=== PATIENT | female | born 1960 | race Caucasian/White ===

== ENCOUNTER 2018-06-01 10:00 | Emergency (ER) | payer OTHER ==
[2018-06-01] MEDS ORDERED: NS 0.9% 1000 ML* 1,000 ML IV ONE (10:41)
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
[2018-06-01 11:57] LABS: ABS Basophils 0 10^3/ul (0-0.2); ABS Eosinophils 0.1 10^3/ul (0-0.6); ABS Lymphocytes 1.7 10^3/ul (1.0-4.8); ABS Monocytes 0.6 10^3/ul (0-0.8); ABS Neutrophils 8.8 10^3/ul (1.5-7.7); ABS Nucleated RBC 0 10^3/ul; Eosinophil % 1.1 % (0-6); Hematocrit 38 % (35-47); Hemoglobin 12.9 g/dl (12.0-16.0); Mean Corpuscular HGB Conc 34 g/dl (31-36); Mean Corpuscular Hemoglobin 30 pg (27-31); Mean Corpuscular Volume 89 fL (80-97); Mean Platelet Volume 9.4 um3 (7.4-10.4); Nucleated Red Blood Cells % 0.1; Platelet Count 229 10^3/ul (150-450); Red Blood Count 4.24 10^6/ul (4.00-5.40); Red Cell Distribution Width 13 % (10.5-15); White Blood Count 11.3 10^3/ul (3.5-10.8)
[2018-06-01 12:13] LABS: EGFR Non-African American 90.4 (>60)
[2018-06-01] MEDS ORDERED: Iohexol 300* (CONTRAST) 10 ML SDV IV ONE (12:20)
[2018-06-01] MEDS ORDERED: Potassium Chlor TAB* 20 MEQ TAB.ER PO ONE (12:31)
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
[2018-06-01] MEDS ORDERED: ceFAZolin 1 GM VIAL(*) 2 GM in NS 0.9% 100 ML* 100 ML IVPB ONE (14:54)
[2018-06-01] MEDS ORDERED: Ketorolac INJ* 30 MG/ML 1 ML VIAL IV PUSH ONE (15:34)
[2018-06-01] MEDS ORDERED: ceFAZolin 2 GM PREMIX (*) 2 GM/50 ML BAG IVPB ONE (16:00)
[2018-06-01] MEDS ORDERED: Tetan/Diph/Pertus SYR(Tdap)* 0.5 ML SYR(BOOSTRIX) use SYR IM ONE (17:28)
[2018-06-01 17:44] VITALS: BP 158/88
== END 2018-06-01 17:45 | disposition home or self-care (01) ==
LOC: ED 10:00
DX: S82.832B Other fracture of upper and lower end of left fibula, initial encounter for open fracture type I or II (principal); V47.5XXA Car driver injured in collision with fixed or stationary object in traffic accident, initial encounter; Y92.410 Unspecified street and highway as the place of occurrence of the external cause; I10 Essential (primary) hypertension; R91.8 Other nonspecific abnormal finding of lung field; Z23 Encounter for immunization; Z79.899 Other long term (current) drug therapy
CPT/HCPCS: 36415; 70450; 71260; 72125; 74177; 80053; 83605; 83690; 85025; 90471; 90715; 96374; 96375; 99284; A9270-GY; J0690; J1885; Q9967

== ENCOUNTER 2018-06-12 07:50 | Day surgery (SDC) | payer OTHER ==
[~2018-06-12 07:50] MED LIST: Buffered Lidocaine 0.9% SYRIN* 5 ML/SYR SYRINGE INTRADERM ONE
[2018-06-12] MEDS ORDERED: ceFAZolin 2 GM PREMIX in ORs 2 GM/50 ML BAG IVPB ONE (08:12)
[2018-06-12] MEDS ORDERED: Lidocaine 2% PF * 5 ML VIAL ONE (09:16)
[2018-06-12] MEDS ORDERED: Propofol* 10 MG/ML 20 ML BTL IV PUSH ONE (09:16)
[2018-06-12] MEDS ORDERED: Ropivacaine* 2 MG/ML 20 ML VIAL (0.2%) ONE (10:00)
[2018-06-12] MEDS ORDERED: fentaNYL* 50 MCG/ML 2 ML VIAL (100 MCG VIAL) ONE ×2 (10:07→11:52)
[2018-06-12] MEDS ORDERED: Midazolam* 1 MG/ML 2 ML VIAL (2 MG) ONE (10:07)
[2018-06-12] MEDS ORDERED: HYDROmorphone INJ1* 1 MG/ML SYRINGE IV PRN (10:45)
[2018-06-12] MEDS ORDERED: Metoclopramide IV* 5 MG/ML 2 ML VIAL IV PRN (10:45)
[2018-06-12] MEDS ORDERED: Naloxone* 0.4 MG/ML 1 ML VIAL IV PRN (10:45)
[2018-06-12] MEDS ORDERED: Ketorolac INJ* 30 MG/ML 1 ML VIAL ONE (10:53)
[2018-06-12] MEDS ORDERED: Ondansetron INJ* 2 MG/ML VIAL ONE (10:53)
[2018-06-12] MEDS ORDERED: Dexamethasone IV* 4 MG/ML 1 ML (4 MG) ONE (10:53)
[2018-06-12] MEDS ORDERED: Labetalol IV* 5 MG/ML 20 ML VIAL ONE (11:56)
[2018-06-12] MEDS ORDERED: Glycopyrrolate IV* 0.2 MG/ML 1 ML VIAL ONE (11:58)
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
[2018-06-12 13:07] VITALS: BP 131/75
--- NOTE | 2018-06-12 16:20 | RAD ---
CPT II Codes: G9500 INDICATION: Fracture distal left fibula TECHNIQUE: Intraoperative fluoroscopy was provided during ORIF of the distal left fibula. FINDINGS: 4 spot films depict anatomic placement of a left distal fibula plate and screw fixator. Fluoroscopy time: 24 seconds IMPRESSION: As above.
== END 2018-06-12 13:42 | disposition home or self-care (01) ==
LOC: OR 07:50
PROVIDERS: ATTEND Orthopaedic Surgery
DX: S82.832A Other fracture of upper and lower end of left fibula, initial encounter for closed fracture (principal); S96.812A Strain of other specified muscles and tendons at ankle and foot level, left foot, initial encounter; M25.372 Other instability, left ankle; I10 Essential (primary) hypertension; V49.88XA Car occupant (driver) (passenger) injured in other specified transport accidents, initial encounter; Y92.410 Unspecified street and highway as the place of occurrence of the external cause; Z87.891 Personal history of nicotine dependence
CPT/HCPCS: 36415; 76000; 84132; C1713; C1776; J0690; J1100; J1885; J2250; J2405; J2704; J2795; J3010